=== PATIENT | female | born 1970 | race Caucasian/White ===

== ENCOUNTER 2017-08-31 16:43 | Inpatient (IN) | payer OTHER ==
[2017-08-31] MEDS ORDERED: ONDANSETRON 4 MG/2 ML VIAL ONE (17:26)
[2017-08-31] MEDS ORDERED: FENTANYL CITR 100 MCG/2 ML ONE (17:26)
[2017-08-31] MEDS ORDERED: NA CHLORIDE 0.9% 1,000 ML ONE (17:26)
[2017-08-31 17:32] LABS: Absolute Lymphocytes (CBC) 3.7 K/uL (0.7-4.9); Absolute Monocytes 0.5 K/uL (0.1-1.3); Absolute Neutrophil 4.9 K/uL (1.8-8.0); Eosinophils % 2.6 % (0-4.4); Hematocrit 41.3 % (36.0-45.0); Lymphocytes % 39.4 % (15.3-44.8); MCH 32.5 pg (27.0-35.0); MCV 92.5 fL (80-100); MPV 7.8 fL (7.6-11.3); Monocytes % 5.7 % (3.3-12.3); RBC Red Blood Cell Count 4.46 M/uL (3.86-4.86)
[2017-08-31 17:45] LABS: Albumin 4.3 g/dL (3.4-5.0); Bilirubin Direct 0.1 mg/dL (0-0.2); Bilirubin Total 0.4 mg/dL (0.2-1.0); Potassium 3.8 mmol/L (3.5-5.1); Protein, Total 7.6 g/dL (6.4-8.2)
[2017-08-31 17:53] LABS: Urine Blood TRACE (NEG); Urine Glucose NEGATIVE (NEG); Urine Protein NEGATIVE (NEG); Urine Specific Gravity >1.030 (1.005-1.030)
[2017-08-31 17:54] LABS: Urine Specific Gravity >1.030 (1.005-1.030)
--- NOTE | 2017-08-31 18:11 | RAD REPORT ---
EXAM DESCRIPTION: RAD - Abdomen 1 View (KUB) - 08/31/2017 6:00 pm CLINICAL HISTORY: ABD PAIN Pain COMPARISON: [facility] FOR DISSECTION dated 04/28/2011 FINDINGS: The bowel gas pattern is non-obstructive. No evidence of free air or pneumatosis. No suspi cious calcifications. No significant bony findings. Cholecystectomy clips. IMPRESSION: Negative examination.
--- NOTE | 2017-08-31 19:36 | RAD REPORT ---
EXAM DESCRIPTION: CT - Abdomen Pelvis Wo Contrast - 08/31/2017 7:27 pm CLINICAL HISTORY: Abdominal pain. oral contrast;Abd pain;Abdominal distention COMPARISON: [facility] FOR DISSECTION dated 04/28/2011 TECHNIQUE: CT imaging of the abdomen and pelvis was performed without contrast. Solid organ and vasc ular assessment is limited due to lack of IV contrast. All CT scans are performed using dose optimization technique as appropriate and may include automated exposure control or mA/KV adjustment according to patient size. FINDINGS: The lower lung giraldo are clear.Cholecystectomy clips. The liver, spleen, pancreas, adrenal glands and kidneys are within normal limits for a limited non-co ntrast examination. No bowel obstruction, free air, free fluid or abscess. Appendectomy. The osseous structures are within normal limits. IMPRESSION: No acute intra-abdominal or pelvic findings. A limited non-contrast examination was performed as detailed.
[2017-08-31] MEDS ORDERED: PROMETHAZINE 25 MG/ML VIAL ONE (20:00)
[2017-08-31] MEDS ORDERED: MEPERIDINE HCL 25 MG/0.5 ML ONE (20:00)
--- NOTE | 2017-08-31 20:06 | ER ---
Nurse's Notes [facility] Name: Joshua Fernandez Age: 46 yrs Sex: Female : 1970 Arrival Date: 08/31/2017 Time: 16:48 Bed 5 Private MD: out of town, doctor Diagnosis: Intractable Abdominal Pain Presentation: 08/31 16:49 Presenting complaint: Patient states: Was seen in the ER at [place] yesterday, they aj1 did a CT of the abdomen and pelvis, said that they couldn't see anything due to severe constipation. She was sent home and took Miralax, but has not had any relief yet. Reports nausea, but has not vomited in the past 24 hours. States that she has been belching a lot today. Transition of care: patient was not received from another setting of care. Onset of symptoms was August 29, 2017. Risk Assessment: Do you want to hurt yourself or someone else? Patient reports no desire to harm self or others. Initial Sepsis Screen: Does the patient meet any 2 criteria? HR > 90 bpm. Does the patient have a suspected source of infection? No. Patient's initial sepsis screen is negative. Care prior to arrival: None. 16:49 Method Of Arrival: Ambulatory aj1 16:49 Acuity: NIA 2 aj1 Triage Assessment: 16:59 General: Appears in no apparent distress. uncomfortable, Behavior is calm, cooperative, aj1 appropriate for age. Pain: Complains of pain in right upper quadrant Pain currently is 8 out of 10 on a pain scale. Neuro: Level of Consciousness is awake, alert, obeys commands, Speech is normal, Facial symmetry appears normal. Cardiovascular: Patient's skin is warm and dry. Respiratory: Airway is patent Respiratory effort is even, unlabored, Respiratory pattern is regular, symmetrical. GI: Reports constipation, nausea, Patient currently denies vomiting. 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 - Social history:: Smoking status: Patient uses tobacco products, smokes one-half pack cigarettes per day. - Ebola Screening: : Patient denies travel to an Ebola-affected area in the 21 days before illness onset. Screenin:41 Abuse screen: Denies threats or abuse. Nutritional screening: No deficits noted. ae1 Tuberculosis screening: No symptoms or risk factors identified. Fall Risk None identified. Assessment: 17:30 General: Appears uncomfortable, slender, Behavior is cooperative, anxious. Pain: ae1 Complains of pain in right upper quadrant. Neuro: Level of Consciousness is awake, alert, obeys commands, Oriented to person, place, time, situation. Cardiovascular: Heart tones S1 S2 present Patient's skin is warm and dry. Respiratory: Airway is patent Respiratory effort is even, unlabored, Respiratory pattern is regular, symmetrical, Breath sounds are clear bilaterally. GI: Bowel sounds present X 4 quads. hyperactive in right upper quadrant and right lower quadrant. GI: Abdomen is round distended, Abdomen is tender to palpation in right upper quadrant. : No signs and/or symptoms were reported regarding the genitourinary system. EENT: No signs and/or symptoms were reported regarding the EENT system. Derm: Skin is normal. Musculoskeletal: No signs and/or symptoms reported regarding the musculoskeletal system. 17:45 Reassessment: Notified CT that patient completed PO contrast. ae1 17:50 Reassessment: Radiology at bedside Patient states symptoms have improved. ae1 18:22 Reassessment: Patient up to bedside to have bowel movement, patient tolerated ae1 ambulating to bathroom well. Patient states she passed liquid stool. Reassessment: Patient states pain is RUQ is increased. Provider notified, new orders received. Vital Signs: 17:00 BP 87 / 65; Pulse 112; Resp 20; Temp 98.7; Pulse Ox 100% on R/A; Weight 58.97 kg (R); aj1 Height 5 ft. 2 in. (157.48 cm); Pain 8/10; 17:15 BP 103 / 75; Pulse 86; Resp 18; Pulse Ox 97% on R/A; ae1 17:46 BP 99 / 64; Pulse 73; Resp 17; Pulse Ox 100% on R/A; ae1 18:13 BP 104 / 63; Pulse 76; Resp 17; Pulse Ox 100% on R/A; ae1 20:10 BP 113 / 72; Pulse 72; Resp 18; Temp 98.7; Pulse Ox 100% on R/A; Pain 2/10; ak1 17:00 Body Mass Index 23.78 (58.97 kg, 157.48 cm) aj1 ED Course: 16:48 Patient arrived in ED. mr 16:49 out of town, doctor is Private Physician. mr 16:55 Triage completed. aj1 17:03 Kai Ribera PA is PHCP. jr8 17:03 Bharath Munoz MD is Attending Physician. jr8 17:16 Cristino Rhoades, JUICE is Primary Nurse. ae1 17:16 Inserted saline lock: 20 gauge in right antecubital area, using aseptic technique. ae1 Blood collected. 17:20 Arm band placed on. jl7 17:47 Placed in gown. Bed in low position. Call light in reach. Side rails up X 1. Adult w/ ae1 patient. case monitor on. Pulse ox on. NIBP on. Warm blanket given. 17:58 XRAY KUB In Process Unspecified. EDMS 19:27 CT Abd/Pelvis - Without Cont In Process Unspecified. EDMS 19:27 CT completed. Patient tolerated procedure well. Patient moved back from CT. bq 20:05 Nacho Ivy MD is Hospitalizing Provider. jr8 20:11 No provider procedures requiring assistance completed. Patient admitted, IV remains in ak1 place. Administered Medications: 17:30 Drug: Zofran 4 mg Route: IVP; Site: right antecubital; ae1 17:50 Follow up: Response: Nausea is decreased ae1 17:30 Drug: NS 0.9% 1000 ml Route: IV; Rate: 1000 ml; Site: right antecubital; ae1 21:35 Follow up: IV Status: Completed infusion ak1 17:33 Drug: fentaNYL (PF) 25 mcg Route: IVP; Site: right antecubital; ae1 17:50 Follow up: Response: Pain is decreased ae1 18:18 Drug: fentaNYL (PF) 25 mcg Route: IVP; Site: right antecubital; ae1 19:54 Follow up: Response: No adverse reaction ak1 20:03 Drug: Demerol 25 mg Route: IVP; Site: right antecubital; ak1 21:35 Follow up: Response: No adverse reaction ak1 20:03 Drug: Phenergan 12.5 mg Route: IVP; Site: right antecubital; ak1 21:35 Follow up: Response: No adverse reaction ak1 Outcome: 20:05 Decision to Hospitalize by Provider. jr8 21:37 Condition: good ak1 21:37 Instructed on the need for admit. 21:57 Admitted to Med/surg accompanied by tech, family with patient, via wheelchair, room ak1 221, with chart, Report called to Keya 21:58 Patient left the ED. ak1 Signatures: Dispatcher [employer] EDMS Dorota Muhammad RN RN aj1 Airam Tran mr Ale Abreu Josh, PA PA jr8 Radha Morataya RN RN ak1 Cristino Rhoades RN RN ae1 Hitesh Weaver RN RN jl7 Corrections: (The following items were deleted from the chart) 17:02 16:49 Acuity: NIA 3 aj1 aj1 18:51 17:47 General: Appears uncomfortable, slender, Behavior is cooperative, anxious, ae1 ae1 18:51 17:47 Pain: Complains of pain in right upper quadrant ae1 ae1 18:51 17:47 Neuro: Level of Consciousness is awake, alert, obeys commands, Oriented to ae1 person, place, time, situation, ae1 18:51 17:47 Cardiovascular: Heart tones S1 S2 present Patient's skin is warm and dry. ae1 ae1 18:51 17:47 Respiratory: Airway is patent Respiratory effort is even, unlabored, Respiratory ae1 pattern is regular, symmetrical, Breath sounds are clear bilaterally. ae1 18:51 17:47 GI: Bowel sounds present X 4 quads. hyperactive in right upper quadrant and right ae1 lower quadrant ae1 18:51 17:47 GI: Abdomen is round distended, Abdomen is tender to palpation in right upper ae1 quadrant ae1 : 17:47 : No signs and/or symptoms were reported regarding the genitourinary system. ae1ae1 18:51 17:47 EENT: No signs and/or symptoms were reported regarding the EENT system. ae1 ae1 18:51 17:47 Derm: Skin is normal, ae1 ae1 18:51 17:47 Musculoskeletal: No signs and/or symptoms reported regarding the musculoskeletal ae1 system. ae1
--- NOTE | 2017-08-31 20:06 | EDPHYS ---
Physician Documentation [facility] Name: Joshua Fernandez Age: 46 yrs Sex: Female : 1970 Arrival Date: 08/31/2017 Time: 16:48 Bed 5 Private MD: out of town, doctor ED Physician Bharath Munoz HPI: 08/31 17:47 This 46 yrs old Female presents to ER via Ambulatory with complaints of jr8 Abdominal Pain, Abdominal Swelling. 17:47 The patient presents with abdominal pain in the upper abdomen. Onset: The jr8 symptoms/episode began/occurred acutely, yesterday. The symptoms do not radiate. Associated signs and symptoms: Pertinent positives: nausea. The symptoms are described as sharp. Modifying factors: The symptoms are alleviated by nothing, the symptoms are aggravated by nothing. Severity of pain: At its worst the pain was moderate in the emergency department the pain is unchanged. The patient has not experienced similar symptoms in the past. The patient has been recently seen by a physician: [place] ED yesterday, with similar presenting complaints, lab tests were done, CT scan was done. Patient stated that they told her she was constipated and to drink Miralax. Stated that she has been having watery stool only and pain and distension is worse . 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 - Social history:: Smoking status: Patient uses tobacco products, smokes one-half pack cigarettes per day. - Ebola Screening: : Patient denies travel to an Ebola-affected area in the 21 days before illness onset. ROS: 17:47 Eyes: Negative for injury, pain, redness, and discharge, ENT: Negative for injury, jr8 pain, and discharge, Neck: Negative for injury, pain, and swelling, Cardiovascular: Negative for chest pain, palpitations, and edema, Respiratory: Negative for shortness of breath, cough, wheezing, and pleuritic chest pain, Back: Negative for injury and pain, MS/Extremity: Negative for injury and deformity, Skin: Negative for injury, rash, and discoloration, Neuro: Negative for headache, weakness, numbness, tingling, and seizure. 17:47 Abdomen/GI: Positive for abdominal pain, nausea, abdominal distension. Exam: 17:47 Cardiovascular: Regular rate and rhythm with a normal S1 and S2. No gallops, murmurs, jr8 or rubs. Normal PMI, no JVD. No pulse deficits. Respiratory: Lungs have equal breath sounds bilaterally, clear to auscultation and percussion. No rales, rhonchi or wheezes noted. No increased work of breathing, no retractions or nasal flaring. Back: No spinal tenderness. No costovertebral tenderness. Full range of motion. Skin: Warm, dry with normal turgor. Normal color with no rashes, no lesions, and no evidence of cellulitis. MS/ Extremity: Pulses equal, no cyanosis. Neurovascular intact. Full, normal range of motion. Neuro: Awake and alert, GCS 15, oriented to person, place, time, and situation. Cranial nerves II-XII grossly intact. Motor strength 5/5 in all extremities. Sensory grossly intact. Cerebellar exam normal. Normal gait. 17:47 Abdomen/GI: Inspection: distension, that is mild, Bowel sounds: hyperactive, in all quadrants, Palpation: soft, in all quadrants, moderate abdominal tenderness, in the right upper quadrant and left upper quadrant, mass, is not appreciated, rebound tenderness, is not appreciated, voluntary guarding, is not appreciated, involuntary guarding, is not appreciated, no appreciated organomegaly, Indicators: McBurney's point is not tender, Sanchez's sign is negative, Rovsing's sign is negative, Liver: no appreciated palpable abnormalities, tenderness, is not appreciated. Vital Signs: 17:00 BP 87 / 65; Pulse 112; Resp 20; Temp 98.7; Pulse Ox 100% on R/A; Weight 58.97 kg (R); aj1 Height 5 ft. 2 in. (157.48 cm); Pain 8/10; 17:15 BP 103 / 75; Pulse 86; Resp 18; Pulse Ox 97% on R/A; ae1 17:46 BP 99 / 64; Pulse 73; Resp 17; Pulse Ox 100% on R/A; ae1 18:13 BP 104 / 63; Pulse 76; Resp 17; Pulse Ox 100% on R/A; ae1 20:10 BP 113 / 72; Pulse 72; Resp 18; Temp 98.7; Pulse Ox 100% on R/A; Pain 2/10; ak1 17:00 Body Mass Index 23.78 (58.97 kg, 157.48 cm) aj1 MDM: 17:03 Patient medically screened. jr8 19:43 Differential diagnosis: bowel obstruction, diverticulitis, gastritis, gastroesophageal jr8 reflux disease, non-specific abd pain, pancreatitis, Peptic Ulcer Disease, Perf. Duodenal Ulcer, Perf. Gastric Ulcer, Ureterolithiasis. Data reviewed: vital signs, nurses notes, lab test result(s), radiologic studies, CT scan, plain films. Data interpreted: Pulse oximetry: on room air is 100 %. Interpretation: normal. Counseling: I had a detailed discussion with the patient and/or guardian regarding: the historical points, exam findings, and any diagnostic results supporting the discharge/admit diagnosis, lab results, radiology results. Response to treatment: the patient's symptoms have mildly improved after treatment. 20:02 ED course: Patient has been medicated 3 times now. Was in knee chest position in exam jr8 room still in pain. Pain out of proportion to examination. No muscle tenderness or rash noted either. Admitted to Dr. Ivy for intractable pain . 08/31 17:12 Order name: Basic Metabolic Panel; Complete Time: 17:46 8 08/31 17:12 Order name: CBC with Diff; Complete Time: 17:37 8 08/31 17:12 Order name: Creatinine for Radiology; Complete Time: 17:46 8 08/31 17:12 Order name: Hepatic Function; Complete Time: 17:46 jr8 08/31 17:12 Order name: Lipase; Complete Time: 17:46 [facility] 08/31 17:46 Order name: Urine Dipstick--Ancillary (enter results); Complete Time: 17:54 ag 08/31 17:12 Order name: XRAY KUB; Complete Time: 18:16 8 08/31 17:13 Order name: CT Abd/Pelvis - Without Cont; Complete Time: 19:39 [facility] 08/31 17:47 Order name: Urine --Ancillary (enter results) ag 08/31 21:11 Order name: CBC with Automated Diff EDMS 08/31 21:11 Order name: CBC with Automated Diff EDMS 08/31 21:11 Order name: Comprehensive Metabolic Panel EDMS 08/31 21:11 Order name: Comprehensive Metabolic Panel EDMS 08/31 17:12 Order name: Urine Test (obtain specimen); Complete Time: 17:41 [facility] 08/31 17:12 Order name: IV Saline Lock; Complete Time: 17:17 [facility] 08/31 17:12 Order name: Labs collected and sent; Complete Time: 17:17 [facility] 08/31 17:12 Order name: Urine Dipstick-Ancillary (obtain specimen); Complete Time: 17:41 [facility] 08/31 17:12 Order name: Cardiac monitoring; Complete Time: 17:41 [facility] 08/31 21:11 Order name: CONS Pharmacy Consult EDMN 08/31 21:11 Order name: NPO EDMS Administered Medications: 17:30 Drug: Zofran 4 mg Route: IVP; Site: right antecubital; ae1 17:50 Follow up: Response: Nausea is decreased ae1 17:30 Drug: NS 0.9% 1000 ml Route: IV; Rate: 1000 ml; Site: right antecubital; ae1 21:35 Follow up: IV Status: Completed infusion ak1 17:33 Drug: fentaNYL (PF) 25 mcg Route: IVP; Site: right antecubital; ae1 17:50 Follow up: Response: Pain is decreased ae1 18:18 Drug: fentaNYL (PF) 25 mcg Route: IVP; Site: right antecubital; ae1 19:54 Follow up: Response: No adverse reaction ak1 20:03 Drug: Demerol 25 mg Route: IVP; Site: right antecubital; ak1 21:35 Follow up: Response: No adverse reaction ak1 20:03 Drug: Phenergan 12.5 mg Route: IVP; Site: right antecubital; ak1 21:35 Follow up: Response: No adverse reaction ak1 Disposition: 09/01 10:33 Co-signature as Attending Physician, Bharath Munoz MD. Disposition: 08/31/17 20:05 Hospitalization ordered by Nacho Ivy for Observation. Preliminary diagnosis is Intractable Abdominal Pain . - Bed requested for Telemetry/MedSurg (observation). - Status is Observation. ak1 - Condition is Fair. - Problem is new. - Symptoms are unchanged. UTI on Admission? No Signatures: Dispatcher [employer] EDMS Michael Hurtado rg2 Dorota Muhammad RN RN aj1 Kai Ribera PA PA jr8 Radha Morataya RN RN ak1 Cristino Rhoades RN RN ae1 Bharath Munoz MD MD Corrections: (The following items were deleted from the chart) 08/31 20:05 19:43 Counseling: I had a detailed discussion with the patient and/or guardian jr8 regarding: the historical points, exam findings, and any diagnostic results supporting the discharge/admit diagnosis, lab results, radiology results, the need for outpatient follow up, a family practitioner, to return to the emergency department if symptoms worsen or persist or if there are any questions or concerns that arise at home, jr8 20:05 19:43 Special discussion: Based on the patient's Hx, exam, and Dx evaluation, there is jr8 no indication for emergent surgery or inpatient Tx. It is understood by the patient/guardian that if the Sx's persist or worsen they need to return immediately for re-evaluation. jr8 21:24 20:05 Hospitalization Ordered by Nacho Ivy MD for Observation. Preliminary rg2 diagnosis is Intractable Abdominal Pain . Bed requested for Telemetry/MedSurg (observation). Status is Observation. Condition is Fair. Problem is new. Symptoms are unchanged. UTI on Admission? No. jr8 21:58 21:24 08/31/2017 20:05 Hospitalization Ordered by Nacho Ivy MD for Observation. ak1 Preliminary diagnosis is Intractable Abdominal Pain . Bed requested for Telemetry/MedSurg (observation). Status is Observation. Condition is Fair. Problem is new. Symptoms are unchanged. UTI on Admission? No. rg2
[2017-08-31] MEDS ORDERED: MORPHINE 2 MG/ML SYR IV PRN (21:09)
[2017-08-31] MEDS ORDERED: ACETAMINOPHEN 500 MG TAB PO PRN (21:09)
[2017-08-31] MEDS: NA CHLORIDE 0.9% 1,000 ML IV SCH (22:24)
[2017-08-31] MEDS: FENTANYL CITR 100 MCG/2 ML IV PRN (23:24)
[2017-09-01] MEDS ORDERED: FENTANYL CITR 100 MCG/2 ML IV ONE (02:50)
[2017-09-01] MEDS ORDERED: ALPRAZOLAM 0.5 MG TABLET PO PRN (02:51)
[2017-09-01] MEDS ORDERED: HYDROCORTISONE SUC 100 MG INJ IV ONE (04:13)
[2017-09-01 04:40] LABS: Absolute Lymphocytes (CBC) 3.7 K/uL (0.7-4.9); Absolute Monocytes 0.5 K/uL (0.1-1.3); Absolute Neutrophil 2.9 K/uL (1.8-8.0); Basophils % 0.9 % (0-1.3); Eosinophils % 3.7 % (0-4.4); Hematocrit 38.1 % (36.0-45.0); Lymphocytes % 50.2 % (15.3-44.8); MCH 32.5 pg (27.0-35.0); MCV 93.3 fL (80-100); MPV 7.5 fL (7.6-11.3); Monocytes % 6.8 % (3.3-12.3); RBC Red Blood Cell Count 4.09 M/uL (3.86-4.86)
[2017-09-01 05:07] LABS: Albumin 3.6 g/dL (3.4-5.0); Bilirubin Total 0.3 mg/dL (0.2-1.0); Potassium 3.7 mmol/L (3.5-5.1); Protein, Total 6.6 g/dL (6.4-8.2)
--- NOTE | 2017-09-01 05:28 | P.HP ---
Certification for Inpatient Patient admitted to: Observation With expected LOS: <2 Midnights Patient will require the following post-hospital care: None Practitioner: I am a practitioner with admitting privileges, knowledge of patient current condition, hospital course, and medical plan of care. Services: Services provided to patient in accordance with Admission requirements found in Title 42 Section 412.3 of the Code of Federal Regulations Patient History Date of Service: 08/31/17 Reason for admission: Right flank and right upper quadrant pain/persistent diarrhea History of Present Illness: Patient is a 46-year-old female who is been having abdominal pain since Friday afternoon. Patient stay she was at work and she felt faint. She crouched on the floor and this started feeling better. When she stood up she started feeling the same symptoms once again. She thought it was because she had not had anything to eat. She ate some food and started feeling a little better. The next day her symptoms persisted. She continued to feel weak and started having persistent abdominal pain. She had gone to a [employer] restaurant and had eaten a dish with shrimps. She started feeling worse at this time. She had been having some diarrhea which continued throughout that day. She went to the local emergency room for evaluation. She was told that she was constipated, and she was advised to drink a whole bottle of MiraLax which she did. Her diarrhea worsened as did her abdominal pain. She came into our hospital for further evaluation as she was not improving. Now she was having persistent diarrhea as well as abdominal cramping. She works at [employer], and she states that she hardly ever gets sick. She does have psoriatic arthritis and has been on methotrexate in the past. She discontinued this 5 weeks ago. 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 At this time, she will be admitted to the hospital for further evaluation. Her CT of the abdomen and pelvis as well as her labs are negative. Allergies codeine [Codeine] Allergy (Mild, Verified 04/28/11 12:23) Hives zolmitriptan [From Zomig] Allergy (Mild, Verified 04/28/11 12:23) Hives haloperidol Allergy (Verified 08/31/17 22:11) Unknown hydrocodone Allergy (Verified 08/31/17 22:11) Itching sumatriptan [From Imitrex] Allergy (Verified 08/31/17 22:11) Unknown MIGRAINE MEDS Allergy (Mild, Uncoded 04/28/11 12:23) Hives Home Medications: Bupropion *Xl* [Wellbutrin XL*] 150 mg PO DAILY 08/31/17 Buspirone HCl [Buspar] 2 tab PO TID 08/31/17 Carvedilol [Coreg*] 3.125 mg PO BID 08/31/17 Topiramate [Topamax*] 100 mg PO BID 08/31/17 - Past Medical/Surgical History Has patient received pneumonia vaccine in the past: No Diabetic: No -: anxiety -: migraines -: heart valve prolapse -: diverticulitis -: ovarian cyst -: hysterectomy -: appendectomy - Family History Father Family History: Reviewed- Non-Contributory - Social History Smoking Status: Current every day smoker Alcohol use: Yes CD- Drugs: No Place of Residence: Home Review of Systems 10-point ROS is otherwise unremarkable Physical Examination - Vital Signs Temperature: 97.6 F Blood Pressure: 101/58 Pulse: 77 Respirations: 18 Pulse Ox (%): 97 - Physical Exam General: Alert, In no apparent distress, Oriented x3 HEENT: Atraumatic, PERRLA, Mucous membr. moist/pink, EOMI, Sclerae nonicteric Neck: Supple, 2+ carotid pulse no bruit, No LAD, Without JVD or thyroid abnormality Respiratory: Clear to auscultation bilaterally, Normal air movement Cardiovascular: Regular rate/rhythm, Normal S1 S2, No murmurs Gastrointestinal: Normal bowel sounds, Soft and benign, Non-distended, No tenderness Musculoskeletal: No clubbing, No swelling, No tenderness Integumentary: No rashes Neurological: Normal gait, Normal speech, Normal strength at 5/5 x4 extr, Normal tone, Sensation intact, Cranial nerves 3-12 intact, Normal affect Lymphatics: No axilla or inguinal lymphadenopathy - Studies Laboratory Data (last 24 hrs) 08/31/17 17:16: Creatinine 0.90 08/31/17 17:16: WBC 9.5, Hgb 14.5, Hct 41.3, Plt Count 297 08/31/17 17:16: Sodium 144, Potassium 3.8, BUN 8, Creatinine 0.90, Glucose 88, Total Bilirubin 0.4, AST 14 L, ALT 15, Alkaline Phosphatase 70, Lipase 130 Assessment & Plan - Problems (Diagnosis) (1) Intractable abdominal pain Current Visit: Yes Status: Acute (2) Diarrhea Current Visit: Yes Status: Acute (3) Right upper quadrant abdominal tenderness Current Visit: Yes Status: Acute (4) History of psoriatic arthritis Current Visit: Yes Status: Acute - Plan Plan: 1. Continue with pain control 2. IV hydration 3. Anti-inflammatory 4. Monitor electrolytes 5. General surgery and GI consultation 6. May need further diagnostic studies to identify the cause of her pain as the CT of the abdomen and pelvis does not reveal a true etiology for her complaints 7. Stool studies 8. GI and DVT prophylaxis - Advance Directives Does patient have a Living Will: No Does patient have a Durable POA for Healthcare: No - Code Status/Comfort Care Code Status Assessed: Yes Code Status: Full Code Critical Care: No Time Spent Managing PTS Care (In Minutes): 50
[2017-09-01] MEDS: NA CHLORIDE 0.9% 1,000 ML IV SCH (07:37)
[2017-09-01] MEDS: FENTANYL CITR 100 MCG/2 ML IV PRN (07:37)
[2017-09-01] MEDS ORDERED: SODIUM CHLORIDE 0.9% 10ML INJ IV PRN (07:55)
[2017-09-01] MEDS: NACHLORIDE 0.45% 1,000 ML IV SCH ×3 (08:26→21:21)
[2017-09-01] MEDS: PIPER/TAZO/NS 3.375gm 3.375 GM/100 ML BAG IVPB SCH ×2 (08:26→17:11)
[2017-09-01] MEDS: BUSPIRONE HCL 5 MG TABLET PO SCH ×3 (08:29→21:20)
[2017-09-01] MEDS: PANTOPRAZOLE 40 MG INJ IVP SCH ×2 (08:29→21:21)
[2017-09-01] MEDS: ONDANSETRON 4 MG/2 ML VIAL IV PRN ×2 (08:29→14:40)
[2017-09-01] MEDS: BUPROPION HCL XL 150 MG TAB PO SCH (08:30)
[2017-09-01] MEDS: TOPIRAMATE 100 MG TAB PO SCH ×3 (08:30→21:20)
--- NOTE | 2017-09-01 08:35 | P.PN ---
Subjective Date of Service: 09/01/17 Primary Care Provider: Out of town Chief Complaint: Right flank and right upper quadrant pain/persistent diarrhea Subjective: Other (Still with right flank to right upper quadrant and epigastric region pain.) Physical Examination - Vital Signs Temperature: 97.6 F Blood Pressure: 102/55 Pulse: 78 Respirations: 18 Pulse Ox (%): 97 - Physical Exam General: Alert, In no apparent distress, Oriented x3, Cooperative HEENT: Atraumatic Neck: Supple Respiratory: Clear to auscultation bilaterally, Normal air movement Cardiovascular: Normal pulses, Regular rate/rhythm Gastrointestinal: Normal bowel sounds, Soft and benign, Non-distended, No masses , No rebound, No guarding, Tenderness (Pain to the epigastric and right upper quadrant region) Musculoskeletal: No erythema, No tenderness, No warmth Integumentary: No erythema, No warmth, No cyanosis Neurological: Normal speech, Normal strength at 5/5 x4 extr, Normal tone, Normal affect Lymphatics: No axilla or inguinal lymphadenopathy - Studies Laboratory Data (last 24 hrs) 08/31/17 17:16: Creatinine 0.90 08/31/17 17:16: WBC 9.5, Hgb 14.5, Hct 41.3, Plt Count 297 08/31/17 17:16: Sodium 144, Potassium 3.8, BUN 8, Creatinine 0.90, Glucose 88, Total Bilirubin 0.4, AST 14 L, ALT 15, Alkaline Phosphatase 70, Lipase 130 Medications List Reviewed: Yes Assessment & Plan - Problems (Diagnosis) (1) Hypertension Current Visit: Yes Status: Chronic Plan: Will continue with her medication. Qualifiers: Hypertension type: essential hypertension Qualified Code(s): I10 - Essential (primary) hypertension (2) Anxiety Current Visit: Yes Status: Chronic Plan: Will continue with her medication. (3) GERD (gastroesophageal reflux disease) Current Visit: Yes Status: Suspected Plan: Suspect GERD with esophagitis. Patient with psoriatic arthritis. She has been using 800 mg of ibuprofen 4 times a day. She reports some coffee ground stool from time to time. Pain noted to the epigastric and right upper quadrant region. Will keep the patient NPO. Will consult GI to for this. Patient may require EGD for evaluation. Will order abdominal ultrasound to further evaluate. Will start Protonix IV b.i.d.. Patient currently on IV Zosyn. Qualifiers: Esophagitis presence: with esophagitis Qualified Code(s): K21.0 - Gastro- esophageal reflux disease with esophagitis (4) Intractable abdominal pain Current Visit: Yes Status: Acute Plan: Patient with epigastric and right upper/flank pain. Continue as above. Patient NPO. Suspect GERD with esophagitis with recent use of nonsteroidal anti- inflammatories. Will start Protonix b.i.d.. (5) Diarrhea Current Visit: Yes Status: Acute Plan: Will evaluate for infectious process. Patient on Zosyn. Qualifiers: Diarrhea type: unspecified type Qualified Code(s): R19.7 - Diarrhea, unspecified (6) History of psoriatic arthritis Current Visit: Yes Status: Chronic Plan: Patient with history of psoriatic arthritis. She is using a large amount of ibuprofen daily. Discharge Plan: Home Plan to discharge in: 48 Hours - Code Status/Comfort Care Code Status Assessed: Yes (Patient full code.) Time Spent Managing Pts Care (In Minutes): 55
[2017-09-01] MEDS ORDERED: PANTOPRAZOLE 40 MG INJ IVP SCH (09:00)
[2017-09-01] MEDS ORDERED: CARVEDILOL 3.125 MG TAB PO SCH ×2 (09:00)
[2017-09-01] MEDS ORDERED: TRAMADOL HCL 50 MG TAB PO PRN (10:17)
[2017-09-01] MEDS ORDERED: FENTANYL CITR 100 MCG/2 ML IV PRN (10:18)
--- NOTE | 2017-09-01 10:18 | RAD REPORT ---
EXAM DESCRIPTION: CT - Chest Angio - 09/01/2017 9:18 am CLINICAL HISTORY: Chest pain. Pulmonary embolism COMPARISON: No comparisons TECHNIQUE: CT angiogram of the pulmonary arteries was performed with MIP. All CT scans are performed using dose optimization technique as appropriate and may include automated exposure control or mA/KV adjustment according to patient size. FINDINGS: No evidence of pulmonary thromboembolism. No acute aortic finding demonstrated. The lungs are mildly emphysematous but clear. Small right hilar lymph node is present measuring 8 mm. No significant pericardial or pleural fluid. No concerning bony finding. IMPRESSION: No evidence of pulmonary thromboembolism. Mild COPD.
--- NOTE | 2017-09-01 10:28 | RAD REPORT ---
EXAM DESCRIPTION: US - Abdomen Exam Complete - 09/01/2017 9:41 am CLINICAL HISTORY: Abdominal pain. right upper quadrant abdomen pain COMPARISON: Abdomen Pelvis Wo Contrast dated 08/31/2017; CTANGIO AORTA FOR DISSECTION dated 04/28/2011 FINDINGS: The liver is normal in size, shape and echotexture. No focal liver lesions or intrahepatic biliary dilatation is seen. The gallbladder is surgically absent. Common bile duct is normal in caliber measuring 4 mm. Both kidneys are normal in size, shape and echotexture. No hydronephrosis, focal lesion of concern or perinephric fluid. The spleen is normal in size measuring 7 cm. The pancreas and aorta are obscured by bowel gas. The visualized aspects of the IVC are grossly normal. IMPRESSION: Unremarkable study except for limited assessment of the pancreas and aorta due to bowel gas. Cholecystectomy.
[2017-09-01] MEDS ORDERED: PIPER/TAZO/NS 3.375gm 3.375 GM/100 ML BAG IVPB SCH (12:00)
[2017-09-01] MEDS ORDERED: NA CHLORIDE 0.9% 500 ML IV ONE (13:00)
--- NOTE | 2017-09-01 14:37 | CON ---
Date of Consultation: 09/01/2017 A 46-year-old female, 221. Reason For Consultation: Intractable abdominal pain. History Of Present Illness: Ms. Fernandez is a 46-year-old female with psoriasis and psoriatic arthri tis. She came with history of diarrhea, abdominal pain. Abdominal pain is severe, located in genera l in the upper abdominal pain. No radiation. Abdominal pain was 10/10. However at this time, her m ain complaint is severe headache, which is not resolved. She has been taking high dose of nonsteroid al anti-inflammatory medication. Denies any hematemesis, melena, or hematochezia. Denies any weakne ss or dizziness. She also takes among other medications methotrexate. Denies any odynophagia, dysph agia. Her vomiting has resolved, however, she still has nausea. Diarrhea has been long lasting, at least for a year and clear liquid. No nocturnal diarrhea, some tenesmus. Past Medical History: As elaborated above. Past Surgical History: Multiple bowel surgeries in the abdomen, also cyst removal, exact nature is u nknown. Family History: Denies any gastrointestinal malignancy in the family. Social History: Only social alcohol. Psychiatric History: None. Allergies: REVIEWED IN THE CHART. Medications: Reviewed in the chart. Review of Systems: General: No weight loss, weight gain. No fever or chills. Appetite was good before acute onset of illness. GI: As elaborated above. Hepatologic: Denies any history of jaundice, hepatitis, any other liver afflictions to her knowledge . Respiratory: No shortness of breath, cough, or expectoration. Cardiac: No palpitation. No heart murmur. No orthopnea or dyspnea. Genitourinary: None. Neuropsychiatric: Other than headache, no other complaint Neuroendocrine: None. Physical Examination: General: Young female, at this time, who appears to be on pain medication. No other acute distress noted. Hemodynamic and respiratory profile within normal range. HEENT: Atraumatic, normocephalic. Oropharynx is clear. Neck: Supple. No lymphadenopathy. Trachea central in position. Chest: Clear to auscultation and percussion. Cardiovascular: Normal S1, S2. No S3, no S4. Abdomen: Soft, nontender, nondistended. Excellent bowel sounds present. No hepatomegaly. No splen omegaly. No rebound. No succussion splash. Neurologic: Alert, oriented x3. Intact memory, mentation, and judgment, although she is somnolent. EXTREMITIES: Upper and lower extremities are normal symmetrical at this time. Diagnostic Data: Reviewed and analyzed. Hemoglobin and hematocrit 14, 41. CT scan, no acute abnorm ality. Impression, Plan, And Recommendation: Ms. Fernandez is a 46-year-old female with abdominal pain, naus ea, vomiting, diarrhea, which is pre-existing. Given the high dose of nonsteroidal use, at this time gastritis is a possibility, although there is n o evidence of ongoing bleeding. Treat her with PPI and other symptomatic management. In regard to h er diarrhea, differential diagnosis will be either medication-related side effect versus colitis. Anna ochoa will eventually need a colonoscopy and EGD, but likely as an outpatient Once her acute condition is controlled. Her headache also needs to be considered. Control. In this regard, I have had a discu ssion with Dr. Simmons. Overall, once her condition improves, endoscopic workup will be undertaken. I have had a long discussion with the patient regarding the indications, contraindications, possible complications, alternatives of upper and lower GI endoscopy. She has good understanding. Her nonsteroidal also has to be limited and this could also produce the same symptoms. JORDAN/ISMAEL Voice ID: [id number] Report ID: [id number]
[2017-09-01] MEDS ORDERED: PROMETHAZINE 25 MG/ML VIAL IV PRN (15:17)
[2017-09-01] MEDS ORDERED: MORPHINE 2 MG/ML SYR IV PRN ×2 (15:17→21:14)
[2017-09-01] MEDS ORDERED: DIPHENHYDRAMINE 50 MG/ML VIAL IV PRN (15:18)
[2017-09-01] MEDS ORDERED: IBUPROFEN 400 MG TAB PO PRN (15:21)
[2017-09-01] MEDS ORDERED: PROMETHAZINE 25 MG/ML VIAL IV ONE (16:00)
[2017-09-01 16:04] LABS: Hematocrit 36.3 % (36.0-45.0)
[2017-09-01] MEDS: MORPHINE 2 MG/ML SYR IV PRN (22:47)
[2017-09-02] MEDS: PIPER/TAZO/NS 3.375gm 3.375 GM/100 ML BAG IVPB SCH ×2 (00:10→09:33)
[2017-09-02] MEDS: NACHLORIDE 0.45% 1,000 ML IV SCH ×2 (04:00→14:00)
[2017-09-02 05:32] VITALS: BMI 23.6
[2017-09-02 07:13] LABS: Absolute Lymphocytes (CBC) 3.9 K/uL (0.7-4.9); Absolute Monocytes 0.4 K/uL (0.1-1.3); Absolute Neutrophil 2.1 K/uL (1.8-8.0); Basophils % 0.9 % (0-1.3); Lymphocytes % 58.2 % (15.3-44.8); MCH 32.8 pg (27.0-35.0); MCV 93.3 fL (80-100); MPV 7.5 fL (7.6-11.3); RBC Red Blood Cell Count 3.76 M/uL (3.86-4.86)
[2017-09-02 07:28] LABS: Potassium 3.4 mmol/L (3.5-5.1)
[2017-09-02 08:25] LABS: Blood Morphology Comment NOT SEEN (NOT SEEN); Platelet Estimate ADEQ
--- NOTE | 2017-09-02 09:05 | RAD REPORT ---
EXAM DESCRIPTION: RAD - Abdomen 1 View (KUB) - 09/02/2017 7:35 am CLINICAL HISTORY: Abdominal pain Pain COMPARISON: Abdomen 1 View (KUB) dated 08/31/2017; Abdomen Pelvis Wo Contrast dated 08/31/2017 FINDINGS: The bowel gas pattern is non-obstructive. No evidence of free air or pneumatosis. No suspi cious calcifications. Contrast is noted in the colon. Cholecystectomy clips. IMPRESSION: Negative examination.
[2017-09-02] MEDS: BUPROPION HCL XL 150 MG TAB PO SCH (09:33)
[2017-09-02] MEDS: MORPHINE 2 MG/ML SYR IV PRN (09:34)
[2017-09-02] MEDS: TOPIRAMATE 100 MG TAB PO SCH (09:34)
[2017-09-02] MEDS: PANTOPRAZOLE 40 MG INJ IVP SCH (09:34)
[2017-09-02] MEDS: BUSPIRONE HCL 5 MG TABLET PO SCH ×2 (09:56→14:41)
--- NOTE | 2017-09-02 10:13 | P.PN ---
Subjective Date of Service: 09/02/17 Primary Care Provider: Out of town Chief Complaint: Right flank and right upper quadrant pain/persistent diarrhea Subjective: Improving (Less diarrhea. Abdominal pain improved. Migraine resolved) Physical Examination - Vital Signs Temperature: 98.2 F Blood Pressure: 108/68 Pulse: 75 Respirations: 18 Pulse Ox (%): 99 - Physical Exam General: Alert, In no apparent distress, Oriented x3, Cooperative HEENT: Atraumatic Neck: Supple Respiratory: Clear to auscultation bilaterally, Normal air movement Cardiovascular: Normal pulses, Regular rate/rhythm Gastrointestinal: Normal bowel sounds, Soft and benign, No masses, No rebound, No guarding, Distended (Minimal distention soft), Tenderness (Less pain to the epigastric region) Musculoskeletal: No erythema, No tenderness, No warmth Integumentary: No tenderness/swelling, No erythema, No warmth, No cyanosis Neurological: Normal speech, Normal strength at 5/5 x4 extr, Normal tone, Normal affect - Studies Microbiology Data (last 24 hrs): 08/31/17 23:45 Stool Clostridium difficile Toxin Assay - Final 09/01/17 04:30 Stool Fecal Leukocyte Stain - Final Medications List Reviewed: Yes Assessment & Plan - Problems (Diagnosis) (1) Hypertension Onset Date: 09/01/17 Current Visit: Yes Status: Chronic Plan: Blood pressure medication discontinued. Blood pressure stable likely no need for blood pressure medication Qualifiers: Hypertension type: essential hypertension Qualified Code(s): I10 - Essential (primary) hypertension (2) Anxiety Onset Date: ~09/01/17 Current Visit: Yes Status: Chronic Plan: Will continue with her medication. (3) GERD (gastroesophageal reflux disease) Onset Date: 09/01/17 Current Visit: Yes Status: Suspected Plan: Suspect GERD with esophagitis. Patient with psoriatic arthritis. She has been using 800 mg of ibuprofen 4 times a day. Patient doing well this time. Pain improved. Will advance diet as tolerated. Abdominal ultrasound, CT scan, and KUB unremarkable. If patient is able tolerate her diet then the patient can be discharged home likely in the next 1-2 days. Workup can be continued as an outpatient with GI. Patient will need EGD as an outpatient. Qualifiers: Esophagitis presence: with esophagitis Qualified Code(s): K21.0 - Gastro- esophageal reflux disease with esophagitis (4) Intractable abdominal pain Onset Date: 09/01/17 Current Visit: Yes Status: Acute Plan: Patient with epigastric and right upper/flank pain. Continue as above. Will continue to advance diet. Continue Protonix b.i.d.. (5) Diarrhea Onset Date: 09/01/17 Current Visit: Yes Status: Acute Plan: Stool culture negative. Stool for C diff negative guaiac study negative. Will advance diet. Continue as above. Anticipate discharge in the next 1-2 days. Qualifiers: Diarrhea type: unspecified type Qualified Code(s): R19.7 - Diarrhea, unspecified (6) History of psoriatic arthritis Onset Date: 09/01/17 Current Visit: Yes Status: Chronic Plan: Patient with history of psoriatic arthritis. She is using a large amount of ibuprofen daily. Discharge Plan: Home Plan to discharge in: 24 Hours Time Spent Managing Pts Care (In Minutes): 55
[2017-09-02 11:06] VITALS: O2SAT 99
[2017-09-02] MEDS ORDERED: MORPHINE 4 MG/ML SYR IV PRN (15:30)
--- NOTE | 2017-09-02 15:39 | P.DS ---
Admission Date: 09/01/17 Discharge Date: 09/02/17 Primary Care Provider: Dr. Pittman([place], [place]) Disposition: ROUTINE DISCHARGE Discharge Condition: GOOD Reason for Admission: Right flank and right upper quadrant pain/persistent diarrhea Consultations: GI-Dr. Syed Surgery-Dr. West Procedures: CT abdomen: Unremarkable. No acute findings noted. CT angiogram chest: Unremarkable. Mild COPD changes noted. Abdominal US: Unremarkable. No acute findings noted. - Problems (1) Hypertension Onset Date: 09/01/17 Current Visit: Yes Status: Chronic Qualifiers: Hypertension type: essential hypertension Qualified Code(s): I10 - Essential (primary) hypertension (2) Anxiety Onset Date: ~09/01/17 Current Visit: Yes Status: Chronic (3) GERD (gastroesophageal reflux disease) Onset Date: 09/01/17 Current Visit: Yes Status: Suspected Qualifiers: Esophagitis presence: with esophagitis Qualified Code(s): K21.0 - Gastro- esophageal reflux disease with esophagitis (4) Intractable abdominal pain Onset Date: 09/01/17 Current Visit: Yes Status: Acute (5) Diarrhea Onset Date: 09/01/17 Current Visit: Yes Status: Acute Qualifiers: Diarrhea type: unspecified type Qualified Code(s): R19.7 - Diarrhea, unspecified (6) History of psoriatic arthritis Onset Date: 09/01/17 Current Visit: Yes Status: Chronic (7) Gastritis Current Visit: Yes Status: Suspected Qualifiers: Gastritis type: unspecified gastritis Chronicity: chronic Gastritis bleeding: without bleeding Qualified Code(s): K29.50 - Unspecified chronic gastritis without bleeding (8) Colitis Current Visit: Yes Status: Acute Brief History of Present Illness: 46-year-old female presented emergency room with abdominal pain, diarrhea. Symptoms have been occurring over the last 3 days. Patient has history of psoriatic arthritis. Patient found to be taking large amount of ibuprofen on a regular basis. Patient has taken methotrexate in the past. Initial CT scan unremarkable. Patient was admitted for further evaluation. Hospital Course: During the course of her stay the patient was evaluated for abdominal pain. Pain was located mainly to the epigastric region. CT of the abdomen, CT angiogram chest, an abdominal ultrasound was unremarkable. Patient was evaluated by GI and surgery. Surgery recommended no intervention. GI suspected gastritis related to nonsteroidal anti-inflammatory use-ibuprofen. Patient was using 800 mg of ibuprofen 4 times a day for her psoriatic arthritis. This was discontinued during her stay. Patient may also have underlying colitis likely from medication. Guaiac was negative. C diff culture negative. Stool white count unremarkable. Repeat x-rays of the abdomen were also unremarkable. During the course of her stay her condition improved. She was able tolerate a GI soft diet. No significant abdominal pain noted at discharge. No nausea , vomiting, and diarrhea noted at discharge. Hemoglobin remained stable. No bleeding was noted. At discharge patient will continue with Protonix 40 mg 1 pill once daily. Patient will also continue with lactobacillus 3 times a day. Recommendation is to discontinue nonsteroidal anti-inflammatory use-ibuprofen. For her psoriatic arthritis patient will be started on Neurontin 100 mg 3 times a day as needed for pain. Patient may also use Tylenol as needed for pain. Recommendation is for the patient follow up with Rheumatology to further assess. Patient may need to get back on methotrexate to help her condition. Recommendation is also for the patient to follow up with GI as an outpatient in 1-2 weeks to monitor her progress. Patient will need EGD and colonoscopy in the near future to further evaluate. Patient has a history of migraine headaches. Patient did have a migraine headache during the course of her stay. This has resolved. Patient will continue with her medication-Topamax 100 mg 1 pill twice daily. Patient has depression with anxiety. Patient continue with her medication including Wellbutrin 150 mg daily and Buspar 20 mg 1 pill three times a day. Further adjustment can be done by her PCP. Patient has a history of hypertension. Blood pressures have remained stable off medication. Recommendation is to discontinue carvedilol at discharge. Patient will need a follow up with her PCP to further monitor. If her blood pressure remains above 140/90 consistently the patient may need to be restarted on medication. Vital Signs/Physical Exam: Temp Pulse Resp BP Pulse Ox 98.5 F 74 16 100/80 100 09/02/17 12:00 09/02/17 12:00 09/02/17 12:00 09/02/17 12:09/02/17 12:00 General: Alert, In no apparent distress, Oriented x3, Cooperative HEENT: Atraumatic Neck: Supple Respiratory: Clear to auscultation bilaterally, Normal air movement Cardiovascular: Normal pulses, Regular rate/rhythm Gastrointestinal: Normal bowel sounds, Soft and benign, Non-distended, No ascites, No tenderness, No masses, No rebound, No guarding Musculoskeletal: No erythema, No tenderness, No warmth Integumentary: No tenderness/swelling, No erythema, No warmth, No cyanosis Neurological: Normal speech, Normal strength at 5/5 x4 extr, Normal tone, Normal affect Laboratory Data at Discharge: WBC 6.7 K/uL (4.3-10.9) 09/02/17 06:55 Hgb 12.3 g/dL (12.0-15.0) 09/02/17 06:55 Hct 35.0 % (36.0-45.0) L 09/02/17 06:55 Plt Count 240 K/uL (152-406) 09/02/17 06:55 Sodium 145 mmol/L (136-145) 09/02/17 06:55 Potassium 3.4 mmol/L (3.5-5.1) L 09/02/17 06:55 BUN 5 mg/dL (7-18) L 09/02/17 06:55 Creatinine 0.80 mg/dL (0.55-1.3) 09/02/17 06:55 Glucose 88 mg/dL (74-106) 09/02/17 06:55 Total Bilirubin 0.3 mg/dL (0.2-1.0) 09/01/17 04:23 AST 16 U/L (15-37) 09/01/17 04:23 ALT 14 U/L (12-78) 09/01/17 04:23 Alkaline Phosphatase 60 U/L (45-117) 09/01/17 04:23 Lipase 130 U/L (73-393) 08/31/17 17:16 Home Medications: Bupropion *Xl* [Wellbutrin XL*] 150 mg PO DAILY 08/31/17 Buspirone HCl [Buspar] 2 tab PO TID 08/31/17 Topiramate [Topamax*] 100 mg PO BID 08/31/17 Gabapentin [Neurontin*] 100 mg PO TID PRN #30 cap 09/02/17 Lactobacillus Acidophilus [Acidophilus Lactobacilli] 1 each PO TID #90 capsule 09/02/17 Pantoprazole [Protonix Tab] 40 mg PO DAILY #30 tab 07/10/18 New Medications: Gabapentin [Neurontin*] 100 mg PO TID PRN #30 cap PRN Reason: Pain Lactobacillus Acidophilus [Acidophilus Lactobacilli] 1 each PO TID #90 capsule Pantoprazole [Protonix Tab] 40 mg PO DAILY #30 tab Patient Discharge Instructions: 1. Patient will need a follow up with a PCP in 1 week to follow up this hospitalization. 2. Patient presented with abdominal pain, diarrhea. Patient evaluated by GI and surgery. No surgical intervention needed. CT of the abdomen, abdominal ultrasound, and CT angiogram of chest unremarkable. Stool culture negative for bacteria, blood or C difficile. GI suspects gastritis likely related to medication-nonsteroidal anti-inflammatory- ibuprofen. GI also suspected colitis likely from medication. At discharge patient may continue with a soft GI diet and advance as tolerated. At discharge patient will continue with Protonix 40 mg 1 pill once daily and lactobacillus 1 pill 3 times a day. Recommendation is for the patient to follow up with GI in 1-2 weeks to monitor her progress. Patient will need EGD and colonoscopy in 4-6 weeks to further evaluate. 3. Patient has psoriatic arthritis. Recommendation is to discontinue ibuprofen due to gastritis and colitis. Patient may continue with Tylenol as needed for pain. At discharge patient will continue with gabapentin 100 mg 1 pill 3 times a day as needed for pain pain. Recommendation is for the patient follow up with rheumatology as an outpatient to further assess. Patient may need to be restarted back on her methotrexate. 4. Patient has depression with anxiety. Patient continue with Wellbutrin XL 150 mg daily and Buspar 20 mg 1 pill 3 times a day. Further adjustment can be done by her PCP. 5. Patient has migraine headaches. Patient may continue with Topamax 100 mg 1 pill twice daily. 6. Patient has history of hypertension. Blood pressure is stable without medication. At discharge carvedilol has been discontinued. She is to monitor blood pressure closely. If her blood pressure remains above 140/90 consistently patient may require medication. No need for medication at this time. Diet: Soft GI diet, advanced as tolerated Activity: Ad anette Time spent managing pt's care (in minutes): 55
[2017-09-02 17:19] VITALS: BP 92/60; TEMP 98.1
== END 2017-09-02 16:30 | disposition home or self-care (01) | DRG 395 ==
LOC: ER 16:43 → 2ND 20:05 → OBSVTOIN 09-01 13:42
PROVIDERS: ADMIT Hospitalist; ATTEND Family Medicine
DX: K52.1 Toxic gastroenteritis and colitis (principal); T39.315A Adverse effect of propionic acid derivatives, initial encounter; K29.50 Unspecified chronic gastritis without bleeding; F41.8 Other specified anxiety disorders; I10 Essential (primary) hypertension; G43.909 Migraine, unspecified, not intractable, without status migrainosus; L40.50 Arthropathic psoriasis, unspecified; K21.9 Gastro-esophageal reflux disease without esophagitis; Y92.009 Unspecified place in unspecified non-institutional (private) residence as the place of occurrence of the external cause; Z79.1 Long term (current) use of non-steroidal anti-inflammatories (NSAID); Z88.5 Allergy status to narcotic agent; Z88.8 Allergy status to other drugs, medicaments and biological substances
CPT/HCPCS: 36415; 71275; 74018; 74176; 76700; 80048; 80053; 80076; 81003; 81025; 82274; 83690; 84145; 85014; 85018; 85025; 87045; 87046; 87493; 89055; 96361; 96374; 96375; 99285; C9113; G0378; J1720; J2175; J2270; J2405; J2543; J2550; J3010; J7030; Q9967

== ENCOUNTER 2019-01-30 17:43 | Emergency (ER) | payer OTHER ==
--- OUTSIDE RECORDS SUMMARY | 2019-01-30 17:46 | XMS REPORT ---
:1970 [facility] Address [address] [place] [address] [address] [place] [address] Care Team Providers Name Role Phone DR BRY BETTS Unavailable Unavailable Problems This patient has no known problems. Allergies, Adverse Reactions, Alerts This patient has no known allergies or adverse reactions. Medications This patient has no known medications. Encounters Start End Encounter Admission Attending Care Care Encounter Date/Time Date/Time Type Type Clinicians Facility Department ID 2018-02-11 2018-02-11 Outpatient C MALDONADO BETTS [facility] [id number] 06:57:00 08:15:00 BRY Results Test Description Test Time Test Comments Text Results Atomic Results Result Comments XR Chest 1 View Frontal 2017-10-17 08:57:24 Patient: ELA ROSA Date/Time10/17/2017 07:10 CDTReason for ExamChest painReportCHEST 1 VIEWCLINICAL INFORMATION: Chest painCOMPARISON: None availableFINDINGS:The lungs are well-expanded and clear. No airspace consolidation is seen. No pneumothorax or pleural effusion is present. The cardiac silhouette is normal in size. The bones are grossly intact.IMPRESSION:No acute cardiopulmonary finding.LOCATION: 6 Final Dictated by: MD Cervantes Adam FDictated DT/TM: 10/17/2017 8:56 amSigned by: MD Cervantes Adam FSigned (Electronic Signature): 10/17/2017 8:57 am
--- OUTSIDE RECORDS SUMMARY | 2019-01-30 17:46 | XMS REPORT | Continuity of Care Document ---
:1970 Author Organization [facility] Address [address] [place] [address] Phone Unavailable Care Team Providers Name Role Phone DEE FUNEZ MD Primary Care Physician Insurance Providers Guarantor Ela Rosa Address [address] [place] [address] Email [email or web address] P[facility] Policy Number [id number] Subscriber's Name Ela Rosa Relationship Self / Same As Patient Group Number [id number] Group Name NA Advance Directives Directive Response Recorded Date/Time Advance Directives No 07/18/15 8:25am Directive to Physicians/Living Will No 07/18/15 8:25am Health Care Proxy No 07/18/15 8:25am Organ Donor No 07/18/15 8:25am Medical Power of Printing Supplies Sales Representative No 07/18/15 8:25am Patient/Family Given Education Material R/T Y - 08/08/18....SBM 08/08/18 2: 08pm Directives? Chief Complaint and Reason for Visit Chief Complaint Headache Reason for Visit Headache Problems Medical Problem Onset Date Status Anxiety Unknown Acute Chest pain Unknown Acute Diarrhea Unknown Acute Elevated WBC count Unknown Acute Migraine Unknown Acute Mitral valve prolapse Unknown Acute Mitral valve prolapse Unknown Acute Mitral valve prolapse syndrome Unknown Acute Nausea Unknown Acute Neck pain on right side Unknown Acute Neck pain on right side Unknown Acute Sinus tachycardia Unknown Acute Sinus tachycardia Unknown Acute Tendonitis of finger Unknown Acute Thrush Unknown Acute Past Problems Medical Problem Onset Date Status Abdominal pain Unknown Acute Constipation Unknown Acute Headache Unknown Acute Medications Current Home Medications Medication Dose Units Route Directions Days Qty Instructions Start Date Alprazolam 0.25 Mg ORAL Three Times (Xanax 0.25 Daily As Mg*) 0.25 Mg Needed Tab Dicyclomine Hcl ORAL Four Times (Bentyl *) 20 Daily As Mg Tab Needed Ondansetron Hcl 1 Tab ORAL Every 6 Hours [address] IN MOUTH 08/08/18 (Zofran 4 Mg) 4 As Needed as AND ALLOW Mg Tab needed for TABLET TO Nausea DISSOLVE Social History Social History Problem Response Recorded Date/Time Onset Date Status Hx Physical Abuse No 08/08/2018 2:05pm Not Applicable Not Applicable Smoking Status Start Date Stop Date Current every day smoker Hospital Discharge Instructions No hospital discharge instruction information available. Plan of Care Discharge Date 08/08/18 4:30pm Instructions/Education Provided General Headache Without Cause Forms Provided Portal Welcome Letter Prescriptions See Medication Section Referrals DEE FUNEZ MD Address: [address] [place] [address] Additional Instructions/Education zofran for nausea as needed #15 clear liquids for 24 hours follow up with pcp next week return for new or worsening of symptoms tylenol for pain ibuprofen for pain Functional Status No functional status information available. Allergies, Adverse Reactions, Alerts Allergen Type Severity Reaction Status Last Updated Codeine ([id number]) Allergy Severe Active 12/18/10 Sumatriptan ([id number]) Allergy Severe Active 09/06/13 Zolmitriptan ([id number]) Allergy Severe Active 09/06/13 Immunizations No immunization information available. Vital Signs Acute Vital Signs Vital Response Date/Time Blood Pressure 116/77 mm Hg 08/08/2018 4:41pm Pulse Pulse Rate (adult) 85 beats per minute (60 - 100) 08/08/2018 4:41pm Respiratory Rate 18 breaths per minute (10 - 24) 08/08/2018 4:41pm Temperature Source Oral 08/08/2018 4:41pm Height 5 ft 1 in 08/08/2018 2:05pm Weight 150 lb 08/08/2018 2:05pm Body Mass Index 28.3 kg/m^2 08/08/2018 2:05pm Results No relevant diagnostic test, laboratory data and/or discharge summary information available. Procedures No procedure information available. Encounters Encounter Location Arrival/Admit Date Discharge/Depart Date Attending Provider Departed Portal 08/08/18 1:46pm 08/08/18 4:30pm STEPHANIE DAY Emergency Room [facility] Recent Diagnosis
[2019-01-30] MEDS ORDERED: KETOROLAC 30 MG/ML INJ ONE (18:58)
[2019-01-30] MEDS ORDERED: HYDROCODONE/APAP 7.5/325 MG TAB ONE (18:58)
--- NOTE | 2019-01-30 20:16 | ER ---
Nurse's Notes [facility] Name: Joshua Fernandez Age: 48 yrs Sex: Female : 1970 Arrival Date: 01/30/2019 Time: 17:46 Bed 16 Private MD: Diagnosis: Low back pain Presentation: 01/30 18:10 Presenting complaint: Patient states: Fell approx 1 week ago while out dancing, reports ph that pain was improving but today bent over and felt a pop and pain increased, c/o pain in lower back that radiates up, and pain in R hip. Transition of care: patient was not received from another setting of care. Onset of symptoms. Risk Assessment: Do you want to hurt yourself or someone else? Patient reports no desire to harm self or others. Initial Sepsis Screen: Does the patient meet any 2 criteria? No. Patient's initial sepsis screen is negative. Does the patient have a suspected source of infection? No. Patient's initial sepsis screen is negative. Care prior to arrival: None. 18:10 Method Of Arrival: Ambulatory ph 18:10 Acuity: NIA 4 ph Historical: - Allergies: 18:13 Haloperidol; ph 18:13 Imitrex; ph 18:13 Zomig; ph - PMHx: 18:13 Anxiety; Diverticulitis; heart valve prolaspse; Migraines; Ovarian cyst; ph - PSHx: 18:13 Hysterectomy; Appendectomy; ph - Immunization history:: Flu vaccine is not up to date. - Social history:: Smoking status: Patient uses tobacco products, smokes one pack cigarettes per day. - Ebola Screening: : No symptoms or risks identified at this time. Screenin:10 Abuse screen: Denies threats or abuse. Nutritional screening: No deficits noted. jb4 Tuberculosis screening: No symptoms or risk factors identified. Fall Risk None identified. Assessment: 19:00 General: Appears in no apparent distress. uncomfortable, Behavior is calm, cooperative, jb4 appropriate for age. Pain: Complains of pain in low back area, sacrum and right hip Pain does not radiate. Pain currently is 8 out of 10 on a pain scale. Neuro: Level of Consciousness is awake, alert, obeys commands, Oriented to person, place, time, situation. Cardiovascular: Patient's skin is warm and dry. Respiratory: Airway is patent Respiratory effort is even, unlabored, Respiratory pattern is regular, symmetrical. GI: No signs and/or symptoms were reported involving the gastrointestinal system. : No signs and/or symptoms were reported regarding the genitourinary system. EENT: No signs and/or symptoms were reported regarding the EENT system. Derm: Skin is intact, Skin is pink, warm \T\ dry. Musculoskeletal: Circulation, motion, and sensation intact. Range of motion: intact in all extremities. 20:00 Reassessment: Patient appears in no apparent distress at this time. Patient and/or jb4 family updated on plan of care and expected duration. Pain level reassessed. Patient is alert, oriented x 3, equal unlabored respirations, skin warm/dry/pink. Patient states feeling better. 21:00 Reassessment: Patient appears in no apparent distress at this time. Patient and/or jb4 family updated on plan of care and expected duration. Pain level reassessed. Patient is alert, oriented x 3, equal unlabored respirations, skin warm/dry/pink. PT verbalized understanding of d/c and follow up instructions. Ambulated out of ED with steady gait with friend. Vital Signs: 18:12 BP 119 / 99; Pulse 108; Resp 18; Temp 98.0; Pulse Ox 99% on R/A; Weight 70.31 kg; ph Height 5 ft. 2 in. (157.48 cm); Pain 8/10; 19:20 BP 130 / 110; Pulse 92; Resp 16; Pulse Ox 98% on R/A; jb4 20:56 BP 94 / 74; Pulse 81; Resp 16; Pulse Ox 100% on R/A; jb4 18:12 Body Mass Index 28.35 (70.31 kg, 157.48 cm) ph ED Course: 17:46 Patient arrived in ED. mr 18:12 Triage completed. ph 18:13 Arm band placed on Patient placed in an exam room. ph 18:14 Rakan Carpio FNP-C [facility]. la1 18:14 Mikey Gracia MD is Attending Physician. la1 18:54 Diana Turcios RN is Primary Nurse. ca1 19:10 Patient has correct armband on for positive identification. Bed in low position. Call jb4 light in reach. Side rails up X 1. Pulse ox on. NIBP on. 19:10 No provider procedures requiring assistance completed. Patient did not have IV access jb4 during this emergency room visit. 19:16 Aric Almonte, RN is Primary Nurse. jb4 20:02 Hip Right 2 View XRAY In Process Unspecified. EDMS 20:10 Sacrum And Coccyx XRAY In Process Unspecified. EDMS Administered Medications: 19:23 Drug: [employer] (7.5 mg-325 mg) 1 tabs {Note: Rass score 0.} Route: PO; jb4 20:00 Follow up: Response: No adverse reaction; Pain is decreased; RASS: Alert and Calm (0) jb4 19:24 Drug: TORadol 30 mg Route: IM; Site: left gluteus; jb4 20:00 Follow up: Response: No adverse reaction; Pain is decreased jb4 Outcome: 20:15 Discharge ordered by . la1 21:00 Discharged to home ambulatory, with friend. jb4 21:00 Condition: stable 21:00 Discharge instructions given to patient, friend, Instructed on discharge instructions, follow up and referral plans. medication usage, Demonstrated understanding of instructions, follow-up care, medications, Prescriptions given X 2. 21:05 Patient left the ED. jb4 Signatures: Dispatcher [employer] EDIA Bella Tran mr ShirinRakan, STOCK GRADER-C STOCK GRADER-Cla1 Sugar [place], RN RN Aric Almonte, RN RN jb4 Diana Turcios RN RN ca1
--- NOTE | 2019-01-30 20:16 | EDPHYS ---
Physician Documentation [facility] Name: Joshua Fernandez Age: 48 yrs Sex: Female : 1970 Arrival Date: 01/30/2019 Time: 17:46 Bed 16 Private MD: ED Physician Mikey Gracia HPI: 01/30 18:30 This 48 yrs old Female presents to ER via Ambulatory with complaints of Back la1 Pain. 18:30 The patient presents with pain that is acute. The symptoms are located in the low back, la1 coccyx area, and right hip. Onset: The symptoms/episode began/occurred 1 week(s) ago. The pain radiates to the right leg. Associated signs and symptoms: Pertinent negatives: incontinence, numbness, urinary retention, weakness. The problem was sustained from twisting. Modifying factors: The patient symptoms are alleviated by nothing, the patient symptoms are aggravated by any movement, bending, movement. Severity of symptoms: At their worst the symptoms were mild. The patient has not experienced similar symptoms in the past. Pt reports she fell while dancing one week ago and has been having pain in her lower back since then, today was walking and twisted causing a sudden sharp pain in her lower back and right hip. Historical: - Allergies: 18:13 Haloperidol; ph 18:13 Imitrex; ph 18:13 Zomig; ph - PMHx: 18:13 Anxiety; Diverticulitis; heart valve prolaspse; Migraines; Ovarian cyst; ph - PSHx: 18:13 Hysterectomy; Appendectomy; ph - Immunization history:: Flu vaccine is not up to date. - Social history:: Smoking status: Patient uses tobacco products, smokes one pack cigarettes per day. - Ebola Screening: : No symptoms or risks identified at this time. ROS: 18:32 Constitutional: Negative for fever, chills, and weight loss, Eyes: Negative for injury, la1 pain, redness, and discharge, ENT: Negative for injury, pain, and discharge, Neck: Negative for injury, pain, and swelling, Cardiovascular: Negative for chest pain, palpitations, and edema, Respiratory: Negative for shortness of breath, cough, wheezing, and pleuritic chest pain, Abdomen/GI: Negative for abdominal pain, nausea, vomiting, diarrhea, and constipation, Back: Negative for injury and pain, : Negative for injury, bleeding, discharge, and swelling, MS/Extremity: + for pain in loewr back and right hip Neuro: Negative for headache, weakness, numbness, tingling, and seizure. Exam: 18:33 Constitutional: This is a well developed, well nourished patient who is awake, alert, la1 and in no acute distress. Head/Face: Normocephalic, atraumatic. ENT: Mucous membranes moist. Neck: Supple, full range of motion without nuchal rigidity, or vertebral point tenderness. No Meningismus. Chest/axilla: Normal chest wall appearance and motion. Nontender with no deformity. No lesions are appreciated. Cardiovascular: Regular rate and rhythm with a normal S1 and S2. No gallops, murmurs, or rubs. Normal PMI, no JVD. No pulse deficits. Respiratory: Lungs have equal breath sounds bilaterally, clear to auscultation No rales, rhonchi or wheezes noted. No increased work of breathing, no retractions or nasal flaring. 18:33 Back: pain, that is moderate, of the lumbar area, low back area and sacrum, ROM is painful, with rotation to the right, normal spinal alignment noted, CVA tenderness, is absent, vertebral tenderness, is appreciated at L2 and L3. 18:33 Neuro: Orientation: is normal, Motor: is normal, Sensation: is normal. Vital Signs: 18:12 BP 119 / 99; Pulse 108; Resp 18; Temp 98.0; Pulse Ox 99% on R/A; Weight 70.31 kg; ph Height 5 ft. 2 in. (157.48 cm); Pain 8/10; 19:20 BP 130 / 110; Pulse 92; Resp 16; Pulse Ox 98% on R/A; jb4 20:56 BP 94 / 74; Pulse 81; Resp 16; Pulse Ox 100% on R/A; jb4 18:12 Body Mass Index 28.35 (70.31 kg, 157.48 cm) ph MDM: 18:14 Patient medically screened. la1 20:13 Data reviewed: vital signs, nurses notes, radiologic studies, I have discussed the la1 patient's presentation/case with the attending Emergency Department Physician; and as a result, I will discharge patient. Data interpreted: Pulse oximetry: on room air is 99 %. Interpretation: normal. Test interpretation: by ED physician or midlevel provider: plain radiologic studies. Counseling: I had a detailed discussion with the patient and/or guardian regarding: the historical points, exam findings, and any diagnostic results supporting the discharge/admit diagnosis, radiology results. Special discussion: I discussed with the patient/guardian in detail that at this point there is no indication for admission to the hospital. It is understood, however, that if the symptoms persist or worsen the patient needs to return immediately for re-evaluation. ED course: Pt ambulatory, denies any numbness/tingling, urinary retention.. 01/30 18:23 Order name: Hip Right 2 View XRAY; Complete Time: 23:31 la1 01/30 18:23 Order name: Sacrum And Coccyx XRAY; Complete Time: 23:31 la1 Administered Medications: 19:23 Drug: [place] (7.5 mg-325 mg) 1 tabs {Note: Rass score 0.} Route: PO; jb4 20:00 Follow up: Response: No adverse reaction; Pain is decreased; RASS: Alert and Calm (0) jb4 19:24 Drug: TORadol 30 mg Route: IM; Site: left gluteus; jb4 20:00 Follow up: Response: No adverse reaction; Pain is decreased jb4 Disposition: 01/31 07:27 Co-signature as Attending Physician, Mikey Gracia MD I agree with the assessment and kdr plan of care. Disposition: 01/30/19 20:15 Discharged to Home. Impression: Low back pain. - Condition is Stable. - Discharge Instructions: Back Pain, Adult, Musculoskeletal Pain, Back Pain, Adult, [id number], Back Exercises, [id number]. - Prescriptions for Robaxin 500 mg Oral Tablet - take 2 tablets by ORAL route every 6 hours As needed; 25 tablet. Tylenol- Codeine #3 300-30 mg Oral Tablet - take 2 tablets by ORAL route every 6 hours As needed; 15 tablet. - Medication Reconciliation Form, Thank You Letter, Prescription Opioid Use form. - Follow up: Private Physician; When: As needed; Reason: Recheck today's complaints, Re-evaluation by your physician. - Problem is new. - Symptoms have improved. Signatures: [facility] Mikey Gracia MD MD kdr Attema, Lee, DELINQUENCY COUNSELOR-C DELINQUENCY COUNSELOR-Dave1 Sugar [place], RN RN Aric Almonte, RN RN jb4 Corrections: (The following items were deleted from the chart) 01/30 21:05 20:15 01/30/2019 20:15 Discharged to Home. Impression: Low back pain. Condition is jb4 Stable. Forms are Medication Reconciliation Form, Thank You Letter, Antibiotic Education, Prescription Opioid Use. Follow up: Private Physician; When: As needed; Reason: Recheck today's complaints, Re-evaluation by your physician. Problem is new. Symptoms have improved. la1
--- NOTE | 2019-01-30 20:36 | RAD REPORT ---
EXAM DESCRIPTION: RAD - Hip Right 2 View - 01/30/2019 8:01 pm CLINICAL HISTORY: Right hip pain FINDINGS: No fracture or dislocation is seen. Mild osteoarthritis involves the right hip The bones appear osteoporotic. If the patient continues to have symptoms to suggest an occult fract ure then MRI would be recommended
--- NOTE | 2019-01-30 20:53 | RAD REPORT ---
EXAM DESCRIPTION: RADSacrum And Cniwce0701/30/2019 8:09 pm CLINICAL HISTORY: Back pain status post fall FINDINGS: No fracture is seen
[2019-01-30 21:58] VITALS: BP 119/99; TEMP 98; O2SAT 99
== END 2019-01-30 21:05 | disposition home or self-care (01) ==
LOC: ER 17:43
DX: M54.5 Low back pain (principal); Z88.8 Allergy status to other drugs, medicaments and biological substances; F17.210 Nicotine dependence, cigarettes, uncomplicated
CPT/HCPCS: 72220; 96372; 99284